=== PATIENT | female | born 1970 | race Caucasian/White ===

== ENCOUNTER 2017-05-04 08:10 | Inpatient (IN) | payer MEDICAID, OTHER ==
[~2017-05-04] VITALS: Ht 170.2 cm; Wt 60.0 kg
[~2017-05-04 08:10] MED LIST: IBUP-1574 PO; ONDA4TAB12 PO; PRED50TA PO
[2017-05-04 08:58] LABS: CLARITY,URINE CLOUDY (Clear); COLOR,URINE YELLOW (Yellow); GLUCOSE, URINE NEGATIVE (Neg); KETONES,URINE NEGATIVE (Neg); LEUKOCYTE ESTERASE ,URINE SMALL (Neg); NITRITES, URINE POSITIVE (Neg); OCCULT BLOOD,URINE LARGE (Neg); PH,URINE 5.5 (4.8-8.0); PROTEIN,URINE 30 mg/dl (Neg); UA COLLECTION TYPE CLN CATCH MIDSTREAM
[2017-05-04 08:59] LABS: URINE HCG NEGATIVE (NEG)
[2017-05-04 09:04] LABS: ALANINE AMINOTRANSFERASE 27 U/L (12-78); ALBUMIN 3.8 G/DL (3.4-5.0); ALBUMIN/GLOBULIN RATIO 1.1 (1.1-1.5); ALKALINE PHOSPHATASE 68 IU/L (46-116); ANION GAP 5 (8-16); ASPARTATE AMINO TRANSFERASE 18 U/L (10-37); BACTERIA,URINE 3+ /HPF (Neg); BILIRUBIN,TOTAL 0.2 MG/DL (0.1-1.0); BLOOD UREA NITROGEN 15 MG/DL (7-18); BUN/CREATININE RATIO 16.9 (6.6-38.0); CALCIUM 8.7 MG/DL (8.5-10.1); CHLORIDE 105 MMOL/L (99-107); CREATININE 0.89 MG/DL (0.40-0.90); GLUCOSE 109 MG/DL (70-104); LIPASE 77 U/L (73-393); POTASSIUM 3.4 MMOL/L (3.5-5.1); RBC,URINE TNTC /HPF (0-2); SODIUM 140 MMOL/L (135-145); TOTAL CARBON DIOXIDE 30.3 MMOL/L (24-32); TOTAL PROTEIN 7.3 G/DL (6.4-8.2); WBC,URINE 50-100 /HPF (0-4); eGFR 69 ML/MIN
[2017-05-04 09:05] LABS: CAL OXALATE CRYSTALS FEW /HPF (NEGATIVE)
[2017-05-04 09:06] LABS: SQUAMOUS EPITHELIAL CELL,UR MODERATE /LPF (FEW)
[2017-05-04 09:13] LABS: BASOPHILS # (AUTO) 0.1 X10'3 (0-0.2); BASOPHILS % (AUTO) 0.5 % (0-1); EOSINOPHILS # (AUTO) 0.4 X10'3 (0-0.9); EOSINOPHILS % (AUTO) 2.2 % (0-6); HEMATOCRIT 45.2 % (35.0-45.0); LYMPHOCYTES % (AUTO) 5.4 % (21-51); MEAN CORPUSCULAR HEMOGLOBIN 31.8 PG (27.0-31.0); MEAN CORPUSCULAR HGB CONC 33.1 % (33.0-36.5); MEAN PLATELET VOLUME 9.1 FL (7.4-10.4); MONOCYTES # (AUTO) 0.1 X10'3 (0-0.9); MONOCYTES % (AUTO) 0.4 % (2-12); NEUTROPHILS # (AUTO) 17.2 X10'3 (1.8-7.7); NEUTROPHILS % (AUTO) 91.5 % (42-75); PLATELET COUNT 277 X10'3 (140-440); RED BLOOD COUNT 4.71 X10'6 (4.20-5.60); RED CELL DISTRIBUTION WIDTH 13.7 % (11.5-14.5); WHITE BLOOD COUNT 18.8 X10'3 (4.5-11.0)
[2017-05-04] MEDS ORDERED: CefTRIAXone 2gm/D5W 50ml ADVTG 50 ML IV ONE (09:20)
[2017-05-04] MEDS ORDERED: normal saline 1000ML IV soln IVB ONE ×2 (09:20→10:10)
[2017-05-04] MEDS ORDERED: CefTRIAXone inj 2,000 MG in normal saline 100ml IV soln 100 ML IV ONE (09:50)
[2017-05-04] MEDS ORDERED: morphine 5 MG/ML injection IV ONE (10:10)
[2017-05-04] MEDS ORDERED: ondansetron/PF 4mg/2ml inj IV ONE (10:10)
[2017-05-04] MEDS ORDERED: HYDROcodone/acetaminophen 10/325mg tab PO PRN (10:20)
[2017-05-04] MEDS ORDERED: magnesium Cl slow-release 64mg tablet PO PRN (10:20)
[2017-05-04] MEDS ORDERED: magnesium 2GM in 50ml NS 50 ML IV PRN (10:20)
[2017-05-04] MEDS ORDERED: magnesium 4gm in 100ml NS 100 ML IV PRN (10:20)
[2017-05-04] MEDS ORDERED: magnesium hydroxide 30ml (MOM) UD suspension PO PRN (10:20)
[2017-05-04] MEDS ORDERED: HYDROcodone/acetaminophen 5mg/325mg tablet PO PRN (10:20)
[2017-05-04] MEDS ORDERED: mag hydrox/Alum hydrox/simeth 30ml oral suspension PO PRN (10:20)
[2017-05-04] MEDS ORDERED: potassium Cl 40MEQ/NS 500ml 500 ML IV PRN ×2 (10:20)
[2017-05-04] MEDS ORDERED: ondansetron/PF 4mg/2ml inj IV PRN (10:20)
[2017-05-04] MEDS ORDERED: acetaminophen 325mg tablet PO PRN ×2 (10:20)
[2017-05-04] MEDS ORDERED: potassium Cl 20 mEq SR tablet PO PRN (10:20)
[2017-05-04] MEDS ORDERED: NO HOME MEDS (10:36)
[2017-05-04] MEDS: normal saline 1000ml 1,000 ML IV SCH ×2 (12:04→20:19)
[2017-05-04 13:30] VITALS: BP 106/67
[2017-05-04] MEDS: potassium Cl 20 mEq SR tablet PO PRN ×2 (13:32→17:59)
[2017-05-04] MEDS: traMADol 50MG tablet PO PRN ×2 (13:36→21:37)
[2017-05-04 16:03] LABS: BASOPHILS % (AUTO) 0.1 % (0-1); EOSINOPHILS # (AUTO) 0.3 X10'3 (0-0.9); HEMATOCRIT 38.5 % (35.0-45.0); HEMOGLOBIN 12.8 g/dl (12.0-16.0); LYMPHOCYTES # (AUTO) 0.7 X10'3 (1.1-4.8); LYMPHOCYTES % (AUTO) 4.6 % (21-51); MEAN CORPUSCULAR HEMOGLOBIN 31.6 PG (27.0-31.0); MEAN CORPUSCULAR HGB CONC 33.4 % (33.0-36.5); MEAN CORPUSCULAR VOLUME 94.6 FL (78-98); MEAN PLATELET VOLUME 8.3 FL (7.4-10.4); MONOCYTES # (AUTO) 0.5 X10'3 (0-0.9); NEUTROPHILS # (AUTO) 14.5 X10'3 (1.8-7.7); NEUTROPHILS % (AUTO) 90.3 % (42-75); PLATELET COUNT 250 X10'3 (140-440); RED BLOOD COUNT 4.07 X10'6 (4.20-5.60); RED CELL DISTRIBUTION WIDTH 13.4 % (11.5-14.5)
[2017-05-04 19:30] VITALS: BP 105/62
[2017-05-04] MEDS: tamsulosin 0.4mg capsule PO SCH (20:22)
[2017-05-04] MEDS ORDERED: temazepam 15mg capsule PO PRN (21:00)
[2017-05-04] MEDS ORDERED: ketorolac trometh. 30mg/ml inj. IV ONE (23:25)
[2017-05-05] VITALS (18 sets, daily range): BP systolic 94–117; BP diastolic 59–86
[2017-05-05] MEDS: piperacillin/tazo 3.375gm/50ml 50 ML IV SCH ×4 (03:38→19:44)
[2017-05-05] MEDS: normal saline 1000ml 1,000 ML IV SCH ×3 (04:48→22:20)
[2017-05-05 05:13] LABS: BASOPHILS % (AUTO) 0.2 % (0-1); EOSINOPHILS # (AUTO) 0.3 X10'3 (0-0.9); EOSINOPHILS % (AUTO) 2.2 % (0-6); HEMATOCRIT 34.7 % (35.0-45.0); HEMOGLOBIN 11.7 g/dl (12.0-16.0); LYMPHOCYTES # (AUTO) 1.1 X10'3 (1.1-4.8); LYMPHOCYTES % (AUTO) 8.4 % (21-51); MEAN CORPUSCULAR HGB CONC 33.7 % (33.0-36.5); MEAN CORPUSCULAR VOLUME 94.9 FL (78-98); MEAN PLATELET VOLUME 8.4 FL (7.4-10.4); MONOCYTES # (AUTO) 0.7 X10'3 (0-0.9); MONOCYTES % (AUTO) 5.4 % (2-12); NEUTROPHILS # (AUTO) 11.1 X10'3 (1.8-7.7); NEUTROPHILS % (AUTO) 83.8 % (42-75); PLATELET COUNT 206 X10'3 (140-440); RED BLOOD COUNT 3.65 X10'6 (4.20-5.60); RED CELL DISTRIBUTION WIDTH 13.4 % (11.5-14.5); WHITE BLOOD COUNT 13.2 X10'3 (4.5-11.0)
[2017-05-05 05:42] LABS: ALANINE AMINOTRANSFERASE 19 U/L (12-78); ALBUMIN 2.5 G/DL (3.4-5.0); ALBUMIN/GLOBULIN RATIO 0.9 (1.1-1.5); ALKALINE PHOSPHATASE 44 IU/L (46-116); ANION GAP 3 (8-16); ASPARTATE AMINO TRANSFERASE 11 U/L (10-37); BILIRUBIN,TOTAL 0.7 MG/DL (0.1-1.0); BLOOD UREA NITROGEN 10 MG/DL (7-18); BUN/CREATININE RATIO 14.3 (6.6-38.0); CALCIUM 7.7 MG/DL (8.5-10.1); CHLORIDE 108 MMOL/L (99-107); GLUCOSE 104 MG/DL (70-104); MAGNESIUM 1.5 MG/DL (1.5-2.4); POTASSIUM 3.9 MMOL/L (3.5-5.1); SODIUM 140 MMOL/L (135-145); TOTAL CARBON DIOXIDE 28.7 MMOL/L (24-32); TOTAL PROTEIN 5.2 G/DL (6.4-8.2); eGFR > 90 ML/MIN
[2017-05-05] MEDS ORDERED: lactobacillus rhamnosus 10,000 MMU CELLS/CAPSULE PO SCH (07:30)
[2017-05-05] MEDS: K and/or MAG REPLACEMENT MC SCH (07:32)
[2017-05-05] MEDS ORDERED: sevoflurane 250ml liquid IH ONE (07:55)
[2017-05-05] MEDS ORDERED: cefTRIAXone 1g/NS 100ml IVPB 100 ML IV SCH (08:00)
[2017-05-05] MEDS ORDERED: enoxaparin 40mg/0.4ml syringe SQ SCH (08:00)
[2017-05-05] MEDS ORDERED: iohexol 300 MG/1 ML 50ml polymer ONE (08:06)
[2017-05-05] MEDS ORDERED: ringers solution, lacted 1,000 ML IV SCH (08:08)
[2017-05-05] MEDS ORDERED: ondansetron/PF 4mg/2ml inj IV PRN (08:10)
[2017-05-05] MEDS ORDERED: proCHLORperazine 10 MG/2 ml inj IV PRN (08:10)
[2017-05-05] MEDS ORDERED: meperidine/PF 25mg/ml syringe IV PRN ×3 (08:10)
[2017-05-05] MEDS ORDERED: fentaNYL/PF 50MCG/1 ML 2ML syringe ONE (08:11)
[2017-05-05] MEDS ORDERED: midazolam 2 mg/2 ml injection ONE (08:12)
[2017-05-05] MEDS ORDERED: propofol inj 20 ML IV ONE (08:15)
[2017-05-05] MEDS ORDERED: dexamethasone sod phosphate 4mg/ml inj. ONE (08:20)
[2017-05-05] MEDS: LACTOBACILLUS RHAMNOSUS GG 15 billion unit sprinkle caps PO SCH ×2 (10:52→17:44)
[2017-05-05] MEDS: traMADol 50MG tablet PO PRN ×2 (14:52→23:46)
[2017-05-05] MEDS: tamsulosin 0.4mg capsule PO SCH (22:19)
[2017-05-06 00:05] VITALS: BP 108/62
[2017-05-06] MEDS ORDERED: ketorolac trometh. 30mg/ml inj. IM ONE ×2 (00:40→07:00)
[2017-05-06] MEDS ORDERED: ketorolac trometh. 30mg/ml inj. IV ONE ×2 (01:15→07:30)
[2017-05-06] MEDS: piperacillin/tazo 3.375gm/50ml 50 ML IV SCH ×2 (01:23→07:53)
[2017-05-06 05:43] LABS: BASOPHILS % (AUTO) 0.3 % (0-1); EOSINOPHILS # (AUTO) 0.2 X10'3 (0-0.9); EOSINOPHILS % (AUTO) 1.7 % (0-6); HEMOGLOBIN 11.5 g/dl (12.0-16.0); LYMPHOCYTES # (AUTO) 0.9 X10'3 (1.1-4.8); LYMPHOCYTES % (AUTO) 10.2 % (21-51); MEAN CORPUSCULAR HEMOGLOBIN 31.3 PG (27.0-31.0); MEAN CORPUSCULAR HGB CONC 32.8 % (33.0-36.5); MEAN CORPUSCULAR VOLUME 95.4 FL (78-98); MEAN PLATELET VOLUME 8.8 FL (7.4-10.4); MONOCYTES # (AUTO) 0.8 X10'3 (0-0.9); MONOCYTES % (AUTO) 8.3 % (2-12); NEUTROPHILS # (AUTO) 7.2 X10'3 (1.8-7.7); NEUTROPHILS % (AUTO) 79.5 % (42-75); PLATELET COUNT 201 X10'3 (140-440); RED BLOOD COUNT 3.66 X10'6 (4.20-5.60); RED CELL DISTRIBUTION WIDTH 13.5 % (11.5-14.5); WHITE BLOOD COUNT 9.1 X10'3 (4.5-11.0)
[2017-05-06 05:50] LABS: ALANINE AMINOTRANSFERASE 34 U/L (12-78); ALBUMIN 2.7 G/DL (3.4-5.0); ALBUMIN/GLOBULIN RATIO 0.9 (1.1-1.5); ALKALINE PHOSPHATASE 61 IU/L (46-116); ANION GAP 6 (8-16); ASPARTATE AMINO TRANSFERASE 32 U/L (10-37); BILIRUBIN,TOTAL 0.3 MG/DL (0.1-1.0); BLOOD UREA NITROGEN 6 MG/DL (7-18); BUN/CREATININE RATIO 7.9 (6.6-38.0); CHLORIDE 106 MMOL/L (99-107); CREATININE 0.76 MG/DL (0.40-0.90); GLUCOSE 111 MG/DL (70-104); MAGNESIUM 1.6 MG/DL (1.5-2.4); POTASSIUM 3.4 MMOL/L (3.5-5.1); SODIUM 140 MMOL/L (135-145); TOTAL CARBON DIOXIDE 27.7 MMOL/L (24-32); TOTAL PROTEIN 5.8 G/DL (6.4-8.2); eGFR 83 ML/MIN
[2017-05-06] MEDS: normal saline 1000ml 1,000 ML IV SCH ×2 (06:37→10:19)
[2017-05-06 07:16] VITALS: BP 121/72
[2017-05-06] MEDS: LACTOBACILLUS RHAMNOSUS GG 15 billion unit sprinkle caps PO SCH (07:52)
[2017-05-06] MEDS: potassium Cl 20 mEq SR tablet PO PRN ×2 (07:52→12:03)
[2017-05-06] MEDS: K and/or MAG REPLACEMENT MC SCH (07:53)
[2017-05-06 11:38] VITALS: BP 119/83
[2017-05-06] MEDS: traMADol 50MG tablet PO PRN (12:02)
[2017-05-06] MEDS ORDERED: LACT1CAP74 PO (12:06)
[2017-05-06] MEDS ORDERED: LEVO500T2 PO (12:06)
== END 2017-05-06 12:57 | disposition home or self-care (01) | DRG 710 ==
LOC: ER 08:10 → ED HOLD 10:04 → SUR 3N 13:30
PROVIDERS: ADMIT Internal Medicine; ATTEND Internal Medicine
PROC: 0TC78ZZ Extirpation of Matter from Left Ureter, Via Natural or Artificial Opening Endoscopic (ICD-10-PCS; principal; 2017-05-05 07:55)
DX: A41.9 Sepsis, unspecified organism (principal); N20.1 Calculus of ureter; N39.0 Urinary tract infection, site not specified; G43.909 Migraine, unspecified, not intractable, without status migrainosus; G89.29 Other chronic pain; M54.9 Dorsalgia, unspecified; B96.20 Unspecified Escherichia coli [E. coli] as the cause of diseases classified elsewhere; F12.90 Cannabis use, unspecified, uncomplicated; F17.210 Nicotine dependence, cigarettes, uncomplicated; Z88.5 Allergy status to narcotic agent
CPT/HCPCS: 36415; 74176; 80053; 81001; 81025; 83605; 83690; 83735; 84145; 85025; 87040; 87070; 87077; 87088; 87186; 99285; A4402; C1769; J0696; J1100; J1885; J2250; J2270; J2405; J2543; J2704; J3010; J7030; J7120; Q9967

== ENCOUNTER 2017-05-10 13:28 | Emergency (ER) | payer MEDICAID, OTHER ==
[~2017-05-10] VITALS: Ht 170.2 cm; Wt 60.0 kg
[~2017-05-10 13:28] MED LIST changes: -IBUP-1574 PO; +LACT1CAP74 PO; +LEVO500T2 PO; -ONDA4TAB12 PO; -PRED50TA PO
[2017-05-10 13:58] LABS: BASOPHILS % (AUTO) 0.3 % (0-1); EOSINOPHILS # (AUTO) 0.1 X10'3 (0-0.9); EOSINOPHILS % (AUTO) 1.4 % (0-6); HEMATOCRIT 43.4 % (35.0-45.0); HEMOGLOBIN 14.6 g/dl (12.0-16.0); LYMPHOCYTES % (AUTO) 20.7 % (21-51); MEAN CORPUSCULAR HEMOGLOBIN 31.6 PG (27.0-31.0); MEAN CORPUSCULAR HGB CONC 33.6 % (33.0-36.5); MEAN CORPUSCULAR VOLUME 94.1 FL (78-98); MONOCYTES # (AUTO) 0.7 X10'3 (0-0.9); MONOCYTES % (AUTO) 7.7 % (2-12); NEUTROPHILS # (AUTO) 6.6 X10'3 (1.8-7.7); NEUTROPHILS % (AUTO) 69.9 % (42-75); PLATELET COUNT 337 X10'3 (140-440); RED BLOOD COUNT 4.61 X10'6 (4.20-5.60); RED CELL DISTRIBUTION WIDTH 13.5 % (11.5-14.5); WHITE BLOOD COUNT 9.4 X10'3 (4.5-11.0)
[2017-05-10 14:01] LABS: CLARITY,URINE CLEAR (Clear); COLOR,URINE STRAW (Yellow); GLUCOSE, URINE NEGATIVE (Neg); KETONES,URINE NEGATIVE (Neg); LEUKOCYTE ESTERASE ,URINE NEGATIVE (Neg); NITRITES, URINE NEGATIVE (Neg); OCCULT BLOOD,URINE LARGE (Neg); PH,URINE 7.5 (4.8-8.0); PROTEIN,URINE NEGATIVE (Neg); UROBILINOGEN,URINE 0.2 E.U/dL (0.2-1.0)
[2017-05-10 14:03] LABS: UA COLLECTION TYPE CLN CATCH MIDSTREAM
[2017-05-10 14:07] LABS: INR 0.9 INR; PROTHROMBIN TIME 9.8 SECONDS (9.0-12.0)
[2017-05-10 14:10] LABS: SQUAMOUS EPITHELIAL CELL,UR MANY /LPF (FEW)
[2017-05-10 14:11] LABS: TRANSITIONAL EPI CELLS,URINE FEW /HPF
[2017-05-10 14:12] LABS: ALANINE AMINOTRANSFERASE 26 U/L (12-78); ALBUMIN 3.3 G/DL (3.4-5.0); ALBUMIN/GLOBULIN RATIO 0.8 (1.1-1.5); ALKALINE PHOSPHATASE 75 IU/L (46-116); ANION GAP 5 (8-16); ASPARTATE AMINO TRANSFERASE 11 U/L (10-37); BILIRUBIN,TOTAL 0.2 MG/DL (0.1-1.0); BLOOD UREA NITROGEN 9 MG/DL (7-18); BUN/CREATININE RATIO 12.9 (6.6-38.0); CALCIUM 9.1 MG/DL (8.5-10.1); CHLORIDE 104 MMOL/L (99-107); GLUCOSE 91 MG/DL (70-104); POTASSIUM 3.4 MMOL/L (3.5-5.1); SODIUM 142 MMOL/L (135-145); TOTAL CARBON DIOXIDE 32.9 MMOL/L (24-32); TOTAL PROTEIN 7.3 G/DL (6.4-8.2); eGFR > 90 ML/MIN
[2017-05-10 14:12] LABS: BACTERIA,URINE FEW /HPF (Neg)
[2017-05-10 14:13] LABS: AMORPHOUS PHOSPHATES 1+; COARSE GRANULAR CAST 0-3 /LPF (NEGATIVE); WBC,URINE 0-4 /HPF (0-4)
[2017-05-10] MEDS ORDERED: normal saline 1000ML IV soln IVB ONE (14:40)
[2017-05-10] MEDS ORDERED: ondansetron/PF 4mg/2ml inj IV ONE (14:40)
[2017-05-10] MEDS ORDERED: HYDROmorphone 1 mg/ml syringe IV ONE (14:40)
[2017-05-10] MEDS ORDERED: ketorolac trometh. 30mg/ml inj. IV ONE (15:35)
[2017-05-10] MEDS ORDERED: tamsulosin 0.4mg capsule PO ONE (15:54)
[2017-05-10] MEDS ORDERED: NAPR-56 PO (16:02)
[2017-05-10] MEDS ORDERED: FLO0.4C PO (16:02)
[2017-05-10 16:19] VITALS: BP 130/74
== END 2017-05-10 16:21 | disposition home or self-care (01) ==
LOC: ER 13:29
DX: R10.32 Left lower quadrant pain (principal); G43.909 Migraine, unspecified, not intractable, without status migrainosus; G89.29 Other chronic pain; F12.10 Cannabis abuse, uncomplicated; Z88.5 Allergy status to narcotic agent
CPT/HCPCS: 36415; 74176; 80053; 81001; 85025; 85610; 96361; 96374; 96375; 99285; J1170; J1885; J2405; J7030

== ENCOUNTER 2018-03-16 15:57 | Emergency (ER) | payer MEDICAID, OTHER ==
[~2018-03-16] VITALS: Ht 170.2 cm; Wt 58.0 kg
[~2018-03-16 15:57] MED LIST changes: -LEVO500T2 PO
[2018-03-16 16:19] VITALS: BP 138/89
== END 2018-03-16 17:52 | disposition home or self-care (01) ==
LOC: ER 15:57
DX: M25.532 Pain in left wrist (principal); M25.522 Pain in left elbow; G43.909 Migraine, unspecified, not intractable, without status migrainosus; G89.29 Other chronic pain; F12.90 Cannabis use, unspecified, uncomplicated; Z88.5 Allergy status to narcotic agent; Z79.899 Other long term (current) drug therapy
CPT/HCPCS: 29125; 73080; 73110; 99283

== ENCOUNTER 2018-03-20 01:06 | Emergency (ER) | payer MEDICAID, OTHER ==
[~2018-03-20] VITALS: Ht 170.2 cm; Wt 60.5 kg
[2018-03-20 01:09] VITALS: BP 158/89
== END 2018-03-20 02:08 | disposition home or self-care (01) ==
LOC: ER 01:07
DX: S50.12XA Contusion of left forearm, initial encounter (principal); M25.532 Pain in left wrist; G43.909 Migraine, unspecified, not intractable, without status migrainosus; F12.90 Cannabis use, unspecified, uncomplicated; Z98.890 Other specified postprocedural states; Z87.440 Personal history of urinary (tract) infections; Z88.6 Allergy status to analgesic agent; W18.39XA Other fall on same level, initial encounter; Y93.89 Activity, other specified; Y92.89 Other specified places as the place of occurrence of the external cause; Y99.8 Other external cause status
CPT/HCPCS: 29105; 29125; 99284

== ENCOUNTER 2018-03-27 13:06 | Outpatient (CLI) | payer MEDICAID ==
[~2018-03-27 13:06] MED LIST changes: +dextrose 50%-water 50ml dispensing syringe IV PRN; +insulin Lispro (HumaLOG) vial - multi-dose SQ PRN; +insulin regular, human inj. 100 UNITS in normal saline 100ml IV IV SCH
[2018-03-27 13:07] VITALS: BP 144/89
== END 2018-03-27 13:54 | disposition home or self-care (01) ==
LOC: ORTHO 13:06
PROVIDERS: ATTEND Nurse Practitioner Family
DX: S69.92XA Unspecified injury of left wrist, hand and finger(s), initial encounter (principal); F12.90 Cannabis use, unspecified, uncomplicated; F17.200 Nicotine dependence, unspecified, uncomplicated; Z88.5 Allergy status to narcotic agent; W01.0XXA Fall on same level from slipping, tripping and stumbling without subsequent striking against object, initial encounter; Y93.89 Activity, other specified; Y92.89 Other specified places as the place of occurrence of the external cause; Y99.8 Other external cause status
CPT/HCPCS: 73110; 99213; J7030

== ENCOUNTER 2018-04-10 13:05 | Outpatient (CLI) | payer MEDICAID ==
[2018-04-10 13:02] VITALS: BP 125/88
[~2018-04-10 13:05] MED LIST changes: -dextrose 50%-water 50ml dispensing syringe IV PRN; -insulin Lispro (HumaLOG) vial - multi-dose SQ PRN; -insulin regular, human inj. 100 UNITS in normal saline 100ml IV IV SCH
== END 2018-04-10 13:47 | disposition home or self-care (01) ==
LOC: ORTHO 13:05
PROVIDERS: ATTEND Nurse Practitioner Family
DX: S69.92XD Unspecified injury of left wrist, hand and finger(s), subsequent encounter (principal); F12.90 Cannabis use, unspecified, uncomplicated; F17.210 Nicotine dependence, cigarettes, uncomplicated; F32.9 Major depressive disorder, single episode, unspecified; Z88.5 Allergy status to narcotic agent; W01.0XXD Fall on same level from slipping, tripping and stumbling without subsequent striking against object, subsequent encounter
CPT/HCPCS: 73110; 99213

== ENCOUNTER 2018-05-22 09:32 | Outpatient (CLI) | payer OTHER ==
[2018-05-22] MEDS ORDERED: gadopentetate dimeglumine 5 mmol/10ml vial IV ONE (09:55)
[2018-05-22] MEDS ORDERED: iohexol 300 MG/1 ML 10ml vial ONE (09:55)
[2018-05-22] MEDS ORDERED: LIDOcaine 1%/PF 5ML 10 MG/ML VIAL ONE (10:43)
== END 2018-05-22 23:59 | disposition home or self-care (01) ==
LOC: RAD 09:32 → EDSTATUS 10:00 → RAD 23:59
PROVIDERS: ATTEND Nurse Practitioner Family
DX: S63.592A Other specified sprain of left wrist, initial encounter (principal); M25.832 Other specified joint disorders, left wrist; M25.432 Effusion, left wrist; Z88.5 Allergy status to narcotic agent; F17.200 Nicotine dependence, unspecified, uncomplicated; X58.XXXA Exposure to other specified factors, initial encounter; Y93.89 Activity, other specified; Y92.89 Other specified places as the place of occurrence of the external cause; Y99.8 Other external cause status
CPT/HCPCS: 73221; A9579; J2001; Q9967

== ENCOUNTER 2024-03-17 03:53 | Emergency (ER) | payer OTHER ==
[~2024-03-17] VITALS: Ht 170.2 cm; Wt 61.4 kg
[2024-03-17] MEDS ORDERED: AMOX-580 PO (04:22)
[2024-03-17] MEDS: amox tr/potassium clavulanate 875/125mg TAB PO ONE (04:32)
[2024-03-17] MEDS: dexamethasone sod phosphate 10mg/ml inj PO STA (04:33)
[2024-03-17 04:41] VITALS: BP 136/94; PULSE 85; RESP 16; TEMP 97.6; O2SAT 97
== END 2024-03-17 04:35 | disposition home or self-care (01) ==
LOC: ER 03:53
DX: K08.89 Other specified disorders of teeth and supporting structures (principal); G89.29 Other chronic pain; M54.9 Dorsalgia, unspecified; F12.90 Cannabis use, unspecified, uncomplicated; F17.210 Nicotine dependence, cigarettes, uncomplicated; G43.909 Migraine, unspecified, not intractable, without status migrainosus; Z79.899 Other long term (current) drug therapy; Z88.5 Allergy status to narcotic agent; Z98.890 Other specified postprocedural states
CPT/HCPCS: 99283; J1100